=== PATIENT | male | born 1995 | race Caucasian/White ===

== ENCOUNTER 2023-07-14 17:50 | Emergency (ER) | payer OTHER ==
[2023-07-14] MEDS ORDERED: Morphine 4 MG/ML VIAL ONE ×2 (18:46→21:08)
[2023-07-14] MEDS ORDERED: LORazepam 2 MG/ML SYR.(CARPUJECT) ONE (19:12)
[2023-07-14] MEDS ORDERED: levETIRAcetam 500 MG (5 mL) VIAL ONE ×2 (19:16→19:28)
[2023-07-14] MEDS ORDERED: Ondansetron PF 4 MG/2 ML Vial ONE (19:16)
[2023-07-14] MEDS ORDERED: Divalproex Sodium 500 MG ER.TAB ONE (19:28)
[2023-07-14] MEDS ORDERED: Divalproex Sodium DR 500 MG TAB PO SCH (19:45)
[2023-07-14] MEDS ORDERED: Lidocaine 1% w/Epinephrine 1:100K 20 ML VIAL ONE (20:11)
== END 2023-07-14 21:25 ==
LOC: ERS 17:50
DX: S01.81XA Laceration without foreign body of other part of head, initial encounter (principal); R56.9 Unspecified convulsions; F17.210 Nicotine dependence, cigarettes, uncomplicated; W22.8XXA Striking against or struck by other objects, initial encounter
CPT/HCPCS: 12052; 70450; 70486; 72125; 96374; 96375; 96376; J1953; J2060; J2270; J2405

== ENCOUNTER 2024-03-30 16:53 | Observation (INO) | payer OTHER ==
[~2024-03-30 16:53] MED LIST: Iopamidol-370 76% 500 ML MDV (1 ML CHARGE) ONE
[2024-03-30] MEDS ORDERED: fentaNYL 50 mcg/mL 1 mL Vial ONE (16:57)
[2024-03-30] MEDS ORDERED: CEFAZOLIN 2 GM VIAL ONE (17:01)
[2024-03-30] MEDS ORDERED: Sodium Chloride 0.9% 100 ML ONE (17:01)
[2024-03-30] MEDS ORDERED: Boostrix 0.5 ML (Tdap) VIAL (>/=7 yrs of age) ONE (17:01)
[2024-03-30] MEDS ORDERED: Morphine 10 MG/ML VIAL ONE (17:09)
[2024-03-30 17:23] LABS: #Basophils 0.03 10x3/uL (0.0-0.2); %Basophils 0.7 % (0.0-1.0); %Eosinophils 0.7 % (0.0-10.0); %Lymphocytes 38.2 % (21.0-51.0); %Monocytes 14.7 % (0.0-10.0); %Neutrophils 44.6 % (42.0-75.0); Hemoglobin 13.4 g/dL (14.0-18.0); Mean Corpuscular HGB CONC 34.4 g/dL (32.0-36.0); Mean Corpuscular Hemoglobin 31.8 pg (27.0-31.0); Mean Corpuscular Volume 92.4 fL (78.0-98.0); Mean Platelet Volume 9.7 fL (7.4-10.4); Platelet Count 174 10x3/uL (130-400); RBC Distribution Width 14.1 % (11.5-14.5); Red Blood Cell (RBC) Count 4.22 mill/uL (4.70-6.10)
[2024-03-30 17:38] LABS: INR-International Normal Ratio 0.9; PTT 26.2 sec (22.9-36.1); Prothrombin Time 12.5 sec (12.0-14.7)
[2024-03-30 17:39] LABS: ALT (SGPT) 75 U/L (Less than 45); AST (SGOT) 78 U/L (11-34); Alkaline Phosphatase 78 U/L (40-110); Anion Gap 14 mmol/L (10-20); BUN (Urea Nitrogen) 13 mg/dL (8.9-20.6); Bilirubin, Total 0.2 mg/dL (0.3-1.2); Calc. Creatinine Clearance 0 mL/min (70-130); Carbon Dioxide 24 mmol/L (22-29); Chloride 106 mmol/L (98-107); Estimated GFR 110; Globulin 3.1 g/dL (2.4-3.5); Glucose 82 mg/dL (70-105); Potassium 4.4 mmol/L (3.5-5.1); Protein, Total 7.1 g/dL (6.0-8.3); Sodium 140 mmol/L (136-145)
[2024-03-30] MEDS ORDERED: Lidocaine 1% w/Epinephrine 1:100K 20 ML VIAL ONE ×2 (17:39)
[2024-03-30 17:40] LABS: Acetaminophen Less than 10 mcg/mL (Less than 10); Alcohol Less than 10.0 mg/dL (Less than 10); Salicylate Less than 8.0 mg/dL (Less than 8.0)
[2024-03-30 17:53] LABS: Bacteria/HPF None Seen HPF (None Seen); Bilirubin Negative (Negative); Blood, Urine Negative (Negative); CAUTI Indications for Culture Alt mental st,lethar; Clarity Clear (Clear); Glucose, Urine (Dipstick) Normal (Negative); Ketone, Urine Negative (Negative); Leukocyte Negative Leu/uL (Negative); Nitrite Negative (Negative); Protein, Urine (Dipstick) Negative (Neg-Trace); RBC/HPF 0-3 HPF (0-3); Specific Gravity, Urine 1.012 (1.002-1.036); Squamous Epithelial 0-3 HPF (0-3); Urobilinogen Normal mg/dL (Less than 2); WBC/HPF 0-3 HPF (0-3)
[2024-03-30] MEDS ORDERED: Acetaminophen 325 MG TAB PO PRN (17:55)
[2024-03-30] MEDS ORDERED: Ondansetron ODT 4 MG TAB PO PRN (17:55)
[2024-03-30] MEDS ORDERED: hydrALAZINE 20 MG/ML VIAL SLOW IVP PRN (17:55)
[2024-03-30] MEDS ORDERED: Ondansetron PF 4 MG/2 ML Vial IVP PRN (17:55)
[2024-03-30] MEDS ORDERED: Glucagon 1 MG/ML KIT IM PRN (17:55)
[2024-03-30] MEDS ORDERED: Dextrose 5% in Water 1,000 ML IV PRN (17:55)
[2024-03-30] MEDS ORDERED: Dextrose 50% Abboject 50 ML SYRINGE SLOW IVP PRN (17:55)
[2024-03-30] MEDS ORDERED: Ipratropium/Albuterol 3 ML NEB NEB PRN (17:55)
[2024-03-30 18:00] LABS: Urine Culture Reflex No No
[2024-03-30 18:02] LABS: Amphetamine Not Detected (NotDetected); Barbiturates Screen Not Detected (NotDetected); Benzodiazepine Screen Not Detected (NotDetected); Cocaine Metabolite Screen Not Detected (NotDetected); Methadone Not Detected (NotDetected); Methamphetamine Not Detected (NotDetected); Opiate Screen Detected (NotDetected); Oxycodone Screen Not Detected (NotDetected); Phencyclidine (PCP) Not Detected (NotDetected); THC/Cannabinoid Screen Not Detected (NotDetected); Tricyclic Screen Not Detected (NotDetected)
[2024-03-30] MEDS ORDERED: Acetaminophen 500 MG TAB ONE (18:16)
[2024-03-30] MEDS: traMADol HCl 50 MG TAB PO PRN (21:00)
[2024-03-30] MEDS: levETIRAcetam 500 MG TAB PO SCH ×2 (22:46→23:09)
[2024-03-30] MEDS: Divalproex Sodium DR 500 MG TAB PO SCH (22:46)
[2024-03-30] MEDS: Lacosamide 50 mg Tablet PO SCH (22:47)
[2024-03-30] MEDS: busPIRone HCl 10 MG TAB PO SCH (22:47)
[2024-03-30] MEDS: OLANZapine 5 MG TAB PO SCH (22:48)
[2024-03-30] MEDS: TETANUS, DIPHTHERIA TOX,ADULT (TDVAX) 0.5 ML VIAL IM ONE (23:09)
[2024-03-31 03:57] VITALS: BMI 35.7
[2024-03-31 05:34] LABS: #Basophils 0.03 10x3/uL (0.0-0.2); %Basophils 0.5 % (0.0-1.0); %Eosinophils 0.7 % (0.0-10.0); %Lymphocytes 44.8 % (21.0-51.0); %Monocytes 13.5 % (0.0-10.0); %Neutrophils 39.6 % (42.0-75.0); Hematocrit 37.5 % (42.0-52.0); Hemoglobin 12.7 g/dL (14.0-18.0); Mean Corpuscular HGB CONC 33.9 g/dL (32.0-36.0); Mean Corpuscular Hemoglobin 31.8 pg (27.0-31.0); Platelet Count 154 10x3/uL (130-400); RBC Distribution Width 14.2 % (11.5-14.5); Red Blood Cell (RBC) Count 3.99 mill/uL (4.70-6.10)
[2024-03-31 05:51] LABS: Anion Gap 12 mmol/L (10-20); BUN (Urea Nitrogen) 11 mg/dL (8.9-20.6); Calc. Creatinine Clearance 231 mL/min (70-130); Calcium 8.7 mg/dL (7.8-10.44); Carbon Dioxide 26 mmol/L (22-29); Chloride 105 mmol/L (98-107); Estimated GFR 126; Glucose 115 mg/dL (70-105); Potassium 3.9 mmol/L (3.5-5.1); Sodium 139 mmol/L (136-145)
[2024-03-31] MEDS: busPIRone HCl 10 MG TAB PO SCH (09:22)
[2024-03-31] MEDS: Lacosamide 50 mg Tablet PO SCH (09:22)
[2024-03-31] MEDS: levETIRAcetam 500 MG TAB PO SCH (09:23)
[2024-03-31] MEDS: Divalproex Sodium DR 500 MG TAB PO SCH (09:23)
[2024-03-31] MEDS: Venlafaxine HCl XR 150 MG CAP PO SCH (09:23)
[2024-03-31 16:01] VITALS: BP 116/58; TEMP 98.5
[2024-03-31] MEDS ORDERED: Divalproex Sodium DR 500 MG TAB PO SCH (21:00)
[2024-03-31] MEDS ORDERED: OLANZapine 5 MG TAB PO SCH (21:00)
== END 2024-03-31 17:13 ==
LOC: ERS 16:53 → EEVIPCON 16:53 → SURG A 18:00
PROVIDERS: ADMIT Surgery; ATTEND Surgery
DX: S61.511A Laceration without foreign body of right wrist, initial encounter (principal); S11.91XA Laceration without foreign body of unspecified part of neck, initial encounter; T18.9XXA Foreign body of alimentary tract, part unspecified, initial encounter; G40.909 Epilepsy, unspecified, not intractable, without status epilepticus; F31.9 Bipolar disorder, unspecified; F41.9 Anxiety disorder, unspecified; Z87.891 Personal history of nicotine dependence; Z79.899 Other long term (current) drug therapy; X78.8XXA Intentional self-harm by other sharp object, initial encounter
CPT/HCPCS: 12005; 36415; 70498; 71045; 71260; 74018; 74177; 80048; 80053; 80306; 80307; 81001; 85025; 85610; 85730; 86850; 86900; 86901; 90471; 90715; 93005; 96365; 96375; G0378; G0390; J2270; J3010; Q9967